=== PATIENT | male | born 1995 | race Caucasian/White ===

== ENCOUNTER 2018-07-29 18:19 | Emergency (ER) | payer OTHER, BC ==
[2018-07-29 18:36] LABS: PLATELET COUNT 390 10^3/uL (150-400)
[2018-07-29 18:45] LABS: INR 0.99 (0.83-1.16); PROTIME(PATIENT) 13.3 SEC (12.0-15.0)
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
[2018-07-29 20:57] VITALS: BP 137/71
== END 2018-07-29 20:52 | disposition home or self-care (01) ==
LOC: EDUNIT#
DX: S06.0X9A Concussion with loss of consciousness of unspecified duration, initial encounter (principal); V49.40XA Driver injured in collision with unspecified motor vehicles in traffic accident, initial encounter; Y92.410 Unspecified street and highway as the place of occurrence of the external cause; Y93.9 Activity, unspecified; Y99.9 Unspecified external cause status
CPT/HCPCS: 82435-PO; 82565-PO; 82947-PO; 84132-PO; 84295-PO; 84520-PO; 85014-PO; L0120